=== PATIENT | male | born 1960 | race Caucasian/White ===

== ENCOUNTER → 2016-07-10 | Outpatient (CLI) | payer BC ==
[~2016-07-10] MED LIST: AMBIEN10 MG PO; ASPIR 8181 MG PO; BUSPAR DPS10 MG PO; CENTRUM SILVER1 EAC1 PO; FLOMAX DPS0.4 MG PO; IMDUR DPS30 MG PO; LIVALO2 MG PO; MAALOX DPS30 ML PO; NITROGLYCERIN0.4 MG SL; SURFAK240 MG PO; TOPROL XL50 MG PO; TRILIPIX135 MG PO; TYLENOL-DPS650 MG PO; VITAMIN D5000 UNIT PO; WELLBUTRIN XL150 MG PO; ZETIA10 MG PO
== END | disposition home or self-care (01) ==
LOC: PTH.S 09:18
DX: E78.5 Hyperlipidemia, unspecified (principal)